=== PATIENT | female | born 1970 | race Caucasian/White ===

== ENCOUNTER 2016-03-25 17:28 | Emergency (ER) | payer MEDICAID ==
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
== END 2016-03-25 19:08 | disposition home or self-care (01) ==
LOC: ER 17:28
DX: M76.62 Achilles tendinitis, left leg (principal); M25.572 Pain in left ankle and joints of left foot
CPT/HCPCS: 99283

== ENCOUNTER 2016-06-13 16:28 | Emergency (ER) | payer MEDICAID ==
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
[2016-06-13] MEDS ORDERED: IBUPROFEN 600 MG TABLET PO ONE (17:26)
== END 2016-06-13 19:04 | disposition home or self-care (01) ==
LOC: ER 16:28
DX: S60.222A Contusion of left hand, initial encounter (principal); M25.532 Pain in left wrist; Y04.2XXA Assault by strike against or bumped into by another person, initial encounter; Y92.009 Unspecified place in unspecified non-institutional (private) residence as the place of occurrence of the external cause
CPT/HCPCS: 99283

== ENCOUNTER 2016-08-01 22:09 | Emergency (ER) | payer MEDICAID ==
[2016-08-01 23:07] LABS: URINE APPEARANCE CLEAR; URINE BILIRUBIN NEGATIVE (NEGATIVE); URINE BLOOD TRACE-I (NEGATIVE); URINE COLOR YELLOW; URINE GLUCOSE (UA) NEGATIVE (NEGATIVE); URINE KETONE NEGATIVE (NEGATIVE); URINE LEUKOCYTE ESTERASE NEGATIVE (NEGATIVE); URINE NITRITE NEGATIVE (NEGATIVE); URINE PROTEIN NEGATIVE (NEGATIVE); URINE UROBILINOGEN 0.2 E.U./dL (0.20 - 1.00)
[2016-08-01 23:08] LABS: BASO % 0.2 % (0-6); EOS % 0.7 % (0-6); GRAN % 57.2 % (47-80); HEMOGLOBIN 13.1 gm/dl (11.6-16.0); LYMPH % 35.8 % (16-45); MEAN CORPUSCULAR HEMOGLOBIN 32.6 pg (27-33); MEAN CORPUSCULAR HGB CONC 33.6 g/dl (32-36); MEAN PLATELET VOLUME 10.2 fl (7.4-10.4); MONO % 6.1 % (0-9); PLATELET COUNT 337 K/uL (130-400); RED BLOOD COUNT 4.02 M/uL (3.80-5.40); WHITE BLOOD COUNT W/O DIFF 11.6 K/uL (4.2-12.2)
[2016-08-01 23:09] LABS: URINE BACTERIA NONE SEEN; URINE EPITHELIAL CELLS 0 - 2 (FEW); URINE RBC 0 - 2 (NONE SEEN); URINE WBC 0 - 2 (0-2/hpf)
[2016-08-01 23:18] LABS: ANION GAP 6.2 (7-16); BLOOD UREA NITROGEN 14 mg/dL (7-17); CARBON DIOXIDE 24.8 mmol/L (22-30); CREATININE 0.7 mg/dL (0.52-1.04); EST GLOMERULAR FILTRATION RATE > 60 ml/min; GLUCOSE,RANDOM 94 mg/dL (70-110)
[2016-08-01] MEDS ORDERED: MORPHINE SULFATE 5 MG/ML PFS IVP ONE (23:51)
--- NOTE | 2016-08-01 23:52 | Emergency Department Record ---
History of Present Illness - General Chief complaint: Weakness Stated complaint: R SIDE OF FACE NUMB Time Seen by Provider: 08/01/16 22:34 Source: Patient Mode of Arrival: Wheelchair Limitations: No limitations - History of Present Illness Initial comments: pt has had a r sided headache since 8am that started suddenly and continued to worsen throught the day thend about 3 hours ago she noticed a heaviness to her r arm and leg and numbness to her right face and felt like something was crawling in her r ear. Complaint: Focal weakness Onset/Timin -: Hour(s) Location: Face, RUE, R hand Severity: Moderate Quality: Other Consistency: Constant Improves with: None Worsens with: None Associated Symptoms: Headaches, Nausea/vomiting - [place] Coma Scale Eye Response: (4) Open spontaneously Motor Response: (6) Obeys commands Verbal Response: (5) Oriented [place] Total: 15 - Symptoms of Stroke Onset of Symptoms Date: 08/01/16 Onset of Symptoms Time: 20:00 Symptom Onset Unknown: No (headache started at 0800) Symptoms of stroke: Muscle Weakness, Weakness of Face Muscles Baseline State End Date: 08/01/16 - Related Data Home Medications Medication Instructions Recorded Confirmed Last Taken Chrm/Vineg/Bit-Orang Peel/Gr T 1 each PO DAILY 07/14/14 06/13/16 06/13/16 [Apple Cider Vinegar Plus Tb] Allergies Allergy/AdvReac Type Severity Reaction Status Date / Time adhesive tape Allergy Intermediate RASH Verified 08/01/16 22:13 Latex, Natural Rubber Allergy Intermediate SWELLING Verified 08/01/16 22:13 (GENERAL) Penicillins Allergy Intermediate SWELLING Verified 08/01/16 22:13 (GENERAL) Travel Screening - Travel/Exposure Within Last 30 Days Have you traveled within the last 30 days?: No - Travel/Exposure Within Last Year Have you traveled outside the [place] in the last year?: No - Additonal Travel Details Have you been exposed to anyone with a communicable illness?: No - Travel Symptoms Symptom Screening: None Review of Systems Reviewed: No additional complaints except as noted below Constitutional: Reports: As per HPI. Denies: Chills, Fever, Malaise, Night sweats, Weakness, Weight change Eyes: Reports: As per HPI. Denies: Eye discharge, Eye pain, Photophobia, Vision change ENT: Reports: As per HPI. Denies: Congestion, Dental pain, Ear pain, Epistaxis , Hearing loss, Throat pain Respiratory: Reports: As per HPI. Denies: Cough, Dyspnea, Hemoptysis, Stridor, Wheezes Cardiovascular: Reports: As per HPI. Denies: Arrhythmia, Chest pain, Dyspnea on exertion, Edema, Murmurs, Orthopnea, Palpitations, Paroxysmal nocturnal dyspnea, Rheumatic Fever, Syncope Endocrine: Reports: As per HPI. Denies: Fatigue, Heat or cold intolerance, Polydipsia, Polyuria Gastrointestinal: Reports: As per HPI. Denies: Abdominal pain, Constipation, Diarrhea, Hematemesis, Hematochezia, Melena, Nausea, Vomiting Genitourinary: Reports: As per HPI. Denies: Abnormal menses, Discharge, Dyspareunia, Dysuria, Frequency, Hematuria, Incontinence, Retention, Urgency Musculoskeletal: Reports: As per HPI. Denies: Arthralgia, Back pain, Gout, Joint swelling, Myalgia, Neck pain Skin: Reports: As per HPI. Denies: Bruising, Change in color, Change in hair/ nails, Lesions, Pruritus, Rash Neurological: Reports: As per HPI. Denies: Abnormal gait, Confusion, Headache, Numbness, Paresthesias, Seizure, Tingling, Tremors, Vertigo, Weakness Psychiatric: Reports: As per HPI. Denies: Anxiety, Auditory hallucinations, Depression, Homicidal thoughts, Suicidal thoughts, Visual hallucinations Hematological/Lymphatic: Reports: As per HPI. Denies: Anemia, Blood Clots, Easy bleeding, Easy bruising, Swollen glands Past Medical History - SOCIAL HISTORY Smoking Status: Current every day smoker Alcohol Use: None Drug Use: None - RESPIRATORY Hx Respiratory Disorders: Yes Hx Asthma: Yes Hx Bronchitis: Yes Hx Pneumonia: Yes Hx Sleep Apnea: Yes Hx of CPAP: Yes - CARDIOVASCULAR Hx Cardio Disorders: Yes Hx Hypotension: Yes (100 sbp) Hx Palpitations: Yes (last episode- august- sees principal mechanical engineer yearly) Comment:: high cholesterol - NEURO Hx Neuro Disorders: Yes Hx Seizures: Yes (last seizure 2013) - GI Hx GI Disorders: Yes Hx Abdominal Pain: Yes Hx Irritable Bowel: Yes Hx Nausea/Vomiting: Yes Hx of Polyps: Yes - Hx Genitourinary Disorders: Yes Hx UTI: Yes ( CHILD) Comment:: hyst - ENDOCRINE Hx Endocrine Disorders: No - MUSCULOSKELETAL Hx Musculoskeletal Disorders: No - PSYCH Hx Psych Problems: Yes Hx Anxiety: Yes Hx Depression: Yes Comment:: bi polar - HEMATOLOGY/ONCOLOGY Hx Hematology/Oncology Disorders: No Family Medical History Any Significant Family History?: No *Cancer Comment: hodgkins lymphoma, pancreatic Physical Exam - General General Appearance: Alert, Oriented x3, Cooperative, Mild distress - Head Head exam: Normal inspection - Eye Eye exam: Normal appearance, PERRL, EOMI Pupils: Normal accommodation - ENT ENT exam: Normal exam, Mucous membranes moist, Normal external ear exam, Normal orophraynx, TM's normal bilaterally Ear exam: Normal external inspection. negative: External canal tenderness Nasal Exam: Normal inspection. negative: Discharge, Sinus tenderness Mouth exam: Normal external inspection, Tongue normal Teeth exam: Normal inspection. negative: Dental caries Throat exam: Normal inspection. negative: Tonsillar erythema, Tonsillar exudate - Neck Neck exam: Normal inspection, Full ROM. negative: Tenderness - Respiratory Respiratory exam: Normal lung sounds bilaterally. negative: Respiratory distress - Cardiovascular Cardiovascular Exam: Regular rate, Normal rhythm, Normal heart sounds - GI/Abdominal GI/Abdominal exam: Soft, Normal bowel sounds. negative: Tenderness - Rectal Rectal exam: Deferred - exam: Deferred - Extremities Extremities exam: Normal inspection, Full ROM, Normal capillary refill. negative: Tenderness - Back Back exam: Reports: Normal inspection, Full ROM. Denies: Muscle spasm, Rash noted, Tenderness - Neurological Neurological exam: Alert, CN II-XII intact, Normal gait, Oriented X3, Other (4/ 5 strength of lower extremity) - Psychiatric Psychiatric exam: Normal affect, Normal mood - Skin Skin exam: Dry, Intact, Normal color, Warm Stroke Assessment - NIH Stroke Scale 1a. Level of Consciousness: (0) Alert 1b. LOC Questions: (0) Answers Correctly 1c. LOC Commands: (0) Performs Tasks Correctly 2. Best Gaze: (0) Normal 3. Visual: (0) No Visual Loss 4. Facial Palsy: (0) Normal Symmetrical Movement 5a. Motor Arm Left: (0) No Drift 5b. Motor Arm Right: (0) No Drift 6a. Motor Leg Left: (0) No Drift 6b. Motor Leg Right: (1) Drift 7. Limb Ataxia: (0) Absent 8. Sensory: (0) Normal 9. Best Language: (0) No Aphasia 10. Dysarthria: (0) Normal 11. Extinction/Inattention: (0) No Abnormality NIH Stoke Scale Total: 1 Course Vital Signs 08/01/16 08/01/16 08/01/16 22:12 23:04 23:30 Temperature 98.1 F 98.0 F Pulse Rate 76 Pulse Rate [ 74 71 Pulse Ox Probe] Respiratory 22 20 20 Rate Blood Pressure 122/65 Blood Pressure 107/67 102/65 [Left Arm] Pulse Ox 93 L 94 L 94 L - Reevaluation(s) Reevaluation #1: 08/01/16 23:58 pt has regained feeling and strength in her r arm Medical Decision Making - Management Options MDM Management: Additional Work-up Planned (e.g. ADM/Transfer/OP Study) - Data Complexity MDM Data: Labs Ordered and/or Reviewed, X-Ray Ordered and/or Reviewed, EKG Ordered and/or Reviewed - Lab Data Result diagrams: 08/01/16 22:15 08/01/16 22:15 Lab Results 08/01/16 08/01/16 08/01/16 Range/Units 22:15 22:15 22:15 WBC 11.6 (4.2-12.2) K/uL RBC 4.02 (3.80-5.40) M/uL Hgb 13.1 (11.6-16.0) gm/dl Hct 39.0 (35.0-47.0) % MCV 97.0 (81-97) fl MCH 32.6 (27-33) pg MCHC 33.6 (32-36) g/dl RDW 13.0 (11.5-14.5) % Plt Count 337 (130-400) K/uL MPV 10.2 (7.4-10.4) fl Gran % 57.2 (47-80) % Lymphocytes % 35.8 (16-45) % Monocytes % 6.1 (0-9) % Eosinophils % 0.7 (0-6) % Basophils % 0.2 (0-6) % Sodium 141 (136-145) mmol/L Potassium 3.7 (3.5-5.1) mmol/L Chloride 110 H (98-107) mmol/L Carbon Dioxide 24.8 (22-30) mmol/L Anion Gap 6.2 L (7-16) BUN 14 (7-17) mg/dL Creatinine 0.7 (0.52-1.04) mg/dL Estimated GFR > 60 ml/min Random Glucose 94 (70-110) mg/dL Calcium 9.3 (8.5-10.1) mg/dL Urine Color Yellow Urine Appearance Clear Urine pH 7.5 (5.0-8.0) Ur Specific [place] 1.015 (1.002-1.030) Urine Protein Negative (NEGATIVE) Urine Glucose (UA) Negative (NEGATIVE) Urine Ketones Negative (NEGATIVE) Urine Blood Trace-i (NEGATIVE) Urine Nitrite Negative (NEGATIVE) Urine Bilirubin Negative (NEGATIVE) Urine Urobilinogen 0.2 (0.20 - 1.00) E.U./dL Ur Leukocyte Esterase Negative (NEGATIVE) Urine RBC 0 - 2 (NONE SEEN) Urine WBC 0 - 2 (0-2/hpf) Ur Epithelial Cells 0 - 2 (FEW) Urine Bacteria None seen - EKG Data -: EKG Interpreted by Me EKG: No Acute Changes - Radiology Data Radiology results: Report reviewed, Image reviewed Disposition Disposition: Transfer Clinical Impression: Complicated migraine Disposition: Acute Care Hospital Transfer Transfer To: [facility] Reason For Transfer: stroke team Accepting Physician: dr rodríguez Time Discussed w/Accepting Physician: 00:15 Forms: Patient Portal Access
--- NOTE | 2016-08-02 08:52 | CT SCAN REPORT ---
EXAM: CT SCAN HEAD WO CONTRAST HISTORY: RIGHT-SIDED HEADACHE BEGINNING SIXTEEN HOURS AGO. RIGHT FACIAL NUMBNESS BEGINNING FOUR HOURS AGO. TECHNIQUE: Routine noncontrast CT examination of the head is performed. COMPARISON: None. FINDINGS: The ventricles and subarachnoid spaces are normal in size. No area of abnormally increased or attenuation is noted throughout the brain substance. No abnormal extraaxial fluid collection is seen. No acute skull abnormality is identified. The visualized paranasal sinuses and mastoid air cells are clear. The orbits, as visualized, are unremarkable. IMPRESSION: NO INTRACRANIAL ABNORMALITY IDENTIFIED. JOB NUMBER: [id number] MTDD
== END 2016-08-02 00:28 | disposition short-term general hospital (02) ==
LOC: ER 22:09
DX: G43.109 Migraine with aura, not intractable, without status migrainosus (principal); R20.0 Anesthesia of skin; R11.2 Nausea with vomiting, unspecified; M62.81 Muscle weakness (generalized); I95.9 Hypotension, unspecified; F17.210 Nicotine dependence, cigarettes, uncomplicated
CPT/HCPCS: 99285 ×2; 96374; 85025; 80048; 81001; 70450; 93005; 93010; J2270

== ENCOUNTER 2016-10-27 14:52 | Emergency (ER) | payer MEDICAID ==
[2016-10-27] MEDS ORDERED: 0.9 % SODIUM CHLORIDE 1,000 ML BAG IV ONE (15:04)
--- NOTE | 2016-10-27 15:11 | Emergency Department Record ---
History of Present Illness - General Chief Complaint: Abdominal Pain Stated Complaint: CHILLS AND PAIN/LUMP IN ABD Time Seen by Provider: 10/27/16 14:54 Source: Patient, Family Mode of Arrival: Ambulatory Limitations: No limitations - History of Present Illness Initial Comments: 45 yo female presents with a concern about abdominal pain. She felt a tender, bulging area Monday over the left upper abdomen. The area involved has enlarged and is more tender today. She has had multiple surgeries in the past including gall bladder, appy, hysterectomy. Most recent surgery was her appendix this summer. She also reports about 2-3 months of bleeding from an area between the rectum and the vagina. It is intermittent. At times it closes but will then re-open. She has not seen her doctor or contact any of the prior surgeons who have operated on her. PCP is Dr Philip. Complaint: Abdominal pain -: Days(s) Location: LUQ Radiation: LUQ Migration to: LUQ Severity: Moderate Quality: Aching Consistency: Constant Improves With: Nothing Worsens With: Nothing Associated Symptoms: Denies other symptoms - Related Data Patient : No Previous Rx's Medication Instructions Recorded Hydrocodone/Acetaminophen [[place] 1 each PO Q8H #12 tablet 10/27/16 5-325 Tablet] Allergies Allergy/AdvReac Type Severity Reaction Status Date / Time adhesive tape Allergy Intermediate RASH Verified 10/27/16 14:57 Latex, Natural Rubber Allergy Intermediate SWELLING Verified 10/27/16 14:57 (GENERAL) Penicillins Allergy Intermediate SWELLING Verified 10/27/16 14:57 (GENERAL) Review of Systems Constitutional: Reports: Chills. Denies: Fever, Malaise, Weakness Eyes: Denies: Eye discharge, Eye pain, Photophobia ENT: Denies: Congestion, Throat pain Respiratory: Denies: Cough, Dyspnea, Wheezes Cardiovascular: Denies: Chest pain, Palpitations, Syncope Endocrine: Denies: Fatigue, Polydipsia, Polyuria Gastrointestinal: Reports: As per HPI, Abdominal pain, Hematochezia. Denies: Constipation, Diarrhea, Vomiting Genitourinary: Denies: Dysuria, Urgency Musculoskeletal: Denies: Arthralgia, Back pain, Myalgia, Neck pain Skin: Denies: Bruising, Change in color Neurological: Denies: Confusion, Headache, Numbness, Weakness Psychiatric: Denies: Anxiety Hematological/Lymphatic: Denies: Blood Clots, Easy bleeding, Easy bruising, Swollen glands Past Medical History - SOCIAL HISTORY Smoking Status: Current every day smoker Drug Use: None - RESPIRATORY Hx Respiratory Disorders: Yes Hx Asthma: Yes Hx Bronchitis: Yes Hx Pneumonia: Yes Hx Sleep Apnea: Yes Hx of CPAP: Yes - CARDIOVASCULAR Hx Cardio Disorders: Yes Hx Hypotension: Yes (100 sbp) Hx Palpitations: Yes (last episode- august- sees [employer] attendant yearly) Comment:: high cholesterol - NEURO Hx Neuro Disorders: Yes Hx Seizures: Yes (last seizure 2013) - GI Hx GI Disorders: Yes Hx Abdominal Pain: Yes Hx Irritable Bowel: Yes Hx Nausea/Vomiting: Yes Hx of Polyps: Yes - Hx Genitourinary Disorders: Yes Hx UTI: Yes ( CHILD) Comment:: hyst - ENDOCRINE Hx Endocrine Disorders: No - MUSCULOSKELETAL Hx Musculoskeletal Disorders: No - PSYCH Hx Psych Problems: Yes Hx Anxiety: Yes Hx Depression: Yes Comment:: bi polar - HEMATOLOGY/ONCOLOGY Hx Hematology/Oncology Disorders: No Family Medical History *Cancer Comment: hodgkins lymphoma, pancreatic Physical Exam - General General Appearance: Alert, Oriented x3, Cooperative, No acute distress Limitations: No limitations - Head Head exam: Atraumatic, Normocephalic, Normal inspection - Eye Eye exam: Normal appearance. negative: Conjunctival injection, Periorbital swelling - ENT ENT exam: Normal exam, Mucous membranes moist Ear exam: Normal external inspection Nasal Exam: Normal inspection Mouth exam: Normal external inspection - Neck Neck exam: Normal inspection, Full ROM. negative: Tenderness - Respiratory Respiratory exam: Normal lung sounds bilaterally. negative: Respiratory distress - Cardiovascular Cardiovascular Exam: Regular rate, Normal rhythm, Normal heart sounds - GI/Abdominal GI/Abdominal exam: Soft, Tenderness (mild LUQ tenderness, significant obesity limits abilitiy to clearly identify a hernia or mass, no redness, soft abdomen, no rebound or guarding). negative: Distended, Guarding, Rebound, Rigid - Rectal Rectal exam: Heme (-) stool. negative: Black stool, Decreased rectal tone, Fecal impaction, Heme (+) stool, Hemorrhoids, Mass, Normal inspection ( approximately 2cm posterior to the anus there is a 2-3 mm opening, no blood or drainage, no swelling, no erythema), Tenderness - exam: Cervical discharge (white). negative: Abnormal external exam, Adnexal mass (L), Adnexal mass (R), Adnexal tenderness (L), Adnexal tenderness (R), Vaginal bleeding, Vaginal erythema - Extremities Extremities exam: Normal inspection, Full ROM. negative: Pedal edema, Tenderness - Back Back exam: Reports: Normal inspection, Full ROM. Denies: Muscle spasm, Rash noted, Tenderness - Neurological Neurological exam: Alert, Normal gait, Oriented X3 - Psychiatric Psychiatric exam: Normal affect, Normal mood - Skin Skin exam: Dry, Intact, Normal color, Warm Course - Reevaluation(s) Reevaluation #1: The EMR and HC were reviewed In October of 2014 the patient had NENO with Dr Yung. In August of 2016 the patient was seen in the [facility] ED. She was diagnosed with appendicitis and had lap appy with Dr Iglesias. It was noted that the rectal bleeding was ongoing at that time indicating a fairly chronic issue. She has an up coming GI appointment. The patient states she has had many surgeries since 2000 2002 [facility] - Attempted hysterectomy 2002 [facility] - Completed hysterectomy 2002 [facility] - Hernia 2004 [facility] - Bladder suspension 2014 [facility] - NENO Yung 2016 Lucinda Iglesias 10/27/16 15:25 No acute changes on the CBC or UA She is heme negative on rectal examination She does have a 2-3 mm linear opening 2cm posterior to the anus, no current pus or drainage, no blood or bleeding. This does raise the concern for fistula or chronic soft tissue infection. CT is ordered. 10/27/16 15:44 No acute changes on the CMP The lipase is minimally elevated at 98 10/27/16 16:11 Reevaluation #2: The CT of the abdomen and pelvis was reviewed. NO acute process The patient will be referred to Dr Yung again given the chronic posterior wound behind the anus 10/27/16 18:14 Medical Decision Making - Lab Data Result diagrams: 10/27/16 15:21 10/27/16 15:21 Disposition Disposition: Discharge Clinical Impression: Abdominal pain Qualifiers: Abdominal location: unspecified location Qualified Code(s): R10.9 - Unspecified abdominal pain Disposition: Home, Self-Care Condition: (1) Good Instructions: Abdominal Pain (ED) Additional Instructions: You are being referred to Dr Yung of surgery for the long standing wound/sore near your anus Return if you have fever, pain, pus or any new concerns Prescriptions: Hydrocodone/Acetaminophen [Dr[place] 5-325 Tablet] 1 each PO Q8H #12 tablet Referrals: Cas Yung [DOCTOR OF OSTEOPATH] - [facility] [Provider Group] Forms: Patient Portal Access Time of Disposition: 18:18 Quality - Quality Measures Quality Measures: N/A - Blood Pressure Screening Does Patient Have Any of the Following: No Blood Pressure Classification: Normal BP Reading Systolic Measurement: 108 Diastolic Measurement: 75 Screening for High Blood Pressure: < Normal BP, F/U Not Required > [G8783]
[2016-10-27 15:26] LABS: HEMATOCRIT 39.5 % (35.0-47.0); HEMOGLOBIN 13.3 gm/dl (11.6-16.0); MEAN CELL VOLUME 95.2 fl (81-97); MEAN CORPUSCULAR HGB CONC 33.7 g/dl (32-36); MEAN PLATELET VOLUME 9.5 fl (7.4-10.4); PLATELET COUNT 360 K/uL (130-400); RED BLOOD COUNT 4.15 M/uL (3.80-5.40); RED CELL DISTRIBUTION WIDTH 13.2 % (11.5-14.5); URINE APPEARANCE CLEAR; URINE BILIRUBIN NEGATIVE (NEGATIVE); URINE BLOOD TRACE-I (NEGATIVE); URINE COLOR YELLOW; URINE GLUCOSE (UA) NEGATIVE (NEGATIVE); URINE KETONE NEGATIVE (NEGATIVE); URINE LEUKOCYTE ESTERASE NEGATIVE (NEGATIVE); URINE NITRITE NEGATIVE (NEGATIVE); URINE PROTEIN NEGATIVE (NEGATIVE); URINE UROBILINOGEN 0.2 E.U./dL (0.20 - 1.00)
[2016-10-27 15:35] LABS: URINE MUCUS MODERATE; URINE RBC 0 - 2 (NONE SEEN); URINE WBC NONE SEEN (0-2/hpf)
[2016-10-27 15:38] LABS: PLATELET ESTIMATE NORMAL (NORMAL)
[2016-10-27 15:45] LABS: ALB/GLOB RATIO 1.4 (1.1-1.8); ALBUMIN 4.3 g/dL (4.0-5.0); ALKALINE PHOSPHATASE 100 U/L (35-104); ALT/SGPT 16 U/L (<33); AST/SGOT 13 U/L (10.0-35.0); BLOOD UREA NITROGEN 35.2 mg/dL (12.6-42.6); CREATININE 0.6 mg/dL (0.5-0.9); EST GLOMERULAR FILTRATION RATE > 60 mL/min; GLUCOSE,RANDOM 111 mg/dL (74-109); LIPASE 98 U/L (13-60); TOTAL PROTEIN 7.3 g/dL (6.6-8.7)
[2016-10-27] MEDS ORDERED: MORPHINE SULFATE 5 MG/ML PFS IVP ONE (16:08)
[2016-10-27] MEDS ORDERED: ONDANSETRON HCL IV 4 MG/2 ML VIAL IVP ONE (16:08)
--- NOTE | 2016-10-28 07:53 | CT SCAN REPORT ---
EXAM: EMERGENCY CT SCAN OF THE ABDOMEN AND PELVIS HISTORY: LEFT UPPER QUADRANT BULGE IN ABDOMEN AND SORE VAGINA. PRIOR HYSTERECTOMY, CHOLECYSTECTOMY, HERNIA REPAIR, BLADDER SLING. TECHNIQUE: Axial CT scan of the abdomen and pelvis was performed following both oral and IV contrast administration utilizing a dose of 100 ml of Omnipaque 300 as the IV contrast. Comparison: CT abdomen and pelvis 07/21/15. FINDINGS: Surgical clips are seen in the gallbladder fossa consistent with cholecystectomy. The uterus is not identified consistent with hysterectomy as well. No definite hepatic, splenic, adrenal, pancreatic, or renal mass identified. Oral contrast given has passed throughout the small bowel well into the colon with no small bowel obstruction evident. The appendix is not well demonstrated , but no appendicitis is identified. The lung bases appear essentially clear. No free intraperitoneal air or free intraperitoneal fluid identified. Prominent facet joint arthropathy in the lower lumbar spine. There are probably a couple surgical clips in the subcutaneous tissues of the upper anterior abdominal wall, also present previously. IMPRESSION: 1. POSTOP CHOLECYSTECTOMY AND HYSTERECTOMY. 2. THE APPENDIX IS NOT WELL SEEN, BUT NO APPENDICITIS EVIDENT. 3. DEGENERATIVE CHANGES IN THE FACETS OF THE LOWER LUMBAR SPINE. JOB NUMBER: [id number] [facility]
== END 2016-10-27 18:35 | disposition home or self-care (01) ==
LOC: ER 14:52
DX: R10.12 Left upper quadrant pain (principal)
CPT/HCPCS: 99284 ×2; 96374; 96375; 83690; 80053; 81001; 85027; 74177; Q0111; Q9967; J2405; J2270; 87210; J7030

== ENCOUNTER 2016-11-07 09:22 | Day surgery (SDC) | payer MEDICAID ==
[~2016-11-07 09:22] MED LIST: ACETAMINOPHEN 1,000 MG/100 ML BTL IV ONE; CLINDAMYCIN 600MG/50ML PREMIX 600 MG/50 ML BAG IVPB ONE; FAMOTIDINE 20MG TABLET PO ONE; MECLIZINE 25 MG TABLET PO ONE; METOCLOPRAMIDE 10 MG TABLET PO ONE
[2016-11-07] MEDS ORDERED: HYDROMORPHONE HCL 2 MG/ML VIAL IV ONE (15:51)
[2016-11-07] MEDS ORDERED: SUCCINYLCHOLINE 20 MG/ML 10ML IVP ONE (15:51)
[2016-11-07] MEDS ORDERED: LIDOCAINE 2% MDV (20MG/ML) 20ML VIAL IV ONE (15:51)
[2016-11-07] MEDS ORDERED: ONDANSETRON HCL IV 4 MG/2 ML VIAL IVP ONE (15:51)
[2016-11-07] MEDS ORDERED: SEVOFLURANE 250 ML INH ONE (15:51)
[2016-11-07] MEDS ORDERED: MIDAZOLAM HCL 2MG/2ML VIAL IV ONE (15:51)
[2016-11-07] MEDS ORDERED: KETOROLAC 30 MG/ML VIAL IVP ONE (15:51)
[2016-11-07] MEDS ORDERED: FENTANYL PF 100MCG/2ML VIAL IV ONE (15:51)
[2016-11-07] MEDS ORDERED: PROPOFOL 10 MG/ML VIAL IV ONE (15:51)
[2016-11-07] MEDS ORDERED: ROCURONIUM BROMIDE 50MG/5ML VIAL IV ONE (15:51)
[2016-11-07] MEDS ORDERED: GELATIN SPONGE,ABSORBABLE 1 EACH SPONGE TP ONE (16:23)
[2016-11-07] MEDS ORDERED: BUPIVACAINE 0.25% W/EPI MPF 30ML VIAL IVP ONE (16:23)
[2016-11-07] MEDS ORDERED: DIBUCAINE 30 GM TUBE TOP ONE (16:23)
[2016-11-07] MEDS ORDERED: HYDROCODONE/APAP 5/325MG TABLET PO ONE (16:23)
--- NOTE | 2016-11-09 12:50 | Operative Note ---
DATE OF SURGERY: 11/07/2016 Surgeon: Cas Yung DO PREOPERATIVE DIAGNOSIS: Anal fistula. POSTOPERATIVE DIAGNOSIS: Anal fistula. OPERATION: Anal fistulotomy. Indication: The patient is a 45-year-old female who has had ongoing drainage from what appeared to be a perianal fistula for many, many months. She has tried conservative measures. Local wound care without success. On exam, she had an opening about 2 cm from her anal verge in the posterior position. This appeared to be an external opening of an anal fistula. We did discuss fistulotomy, risks, benefits, and alternatives. Risks include bleeding, infection, issue with incontinence, need for repeat operation, prolonged wound healing. She understood this fully. PROCEDURE: Therefore, after consent was signed and questions answered, the patient was taken to the operating room and placed in a supine position. General anesthesia was administered per the department of anesthesia. The patient was rotated into prone jackknife position. Her buttocks were taped apart. Her perianal region was prepped and draped in the usual fashion. Digital rectal exam was done. No masses were noted. There was a thickening in the posterior midline. At this time, probes were placed in the external opening, and the internal opening was identified confirming the fistula. At this time, this tract was opened. This did not go through the sphincter complex. Once the fistulotomy was done, the edges were marsupialized with 3-0 Vicryl in a running locking fashion. Four-quadrant anal block was done. The Lidocaine ointment was place as well as a Gelfoam pack. She was taken to the recovery room in satisfactory condition. FINDINGS AT THE TIME OF SURGERY: Posterior anal fistula requiring fistulotomy. CC: Dr. Tamera LALA
== END 2016-11-07 12:25 | disposition home or self-care (01) ==
LOC: SUR 09:22
PROVIDERS: ATTEND Surgery
DX: K60.5 Anorectal fistula (principal); G40.909 Epilepsy, unspecified, not intractable, without status epilepticus; E78.00 Pure hypercholesterolemia, unspecified; F17.200 Nicotine dependence, unspecified, uncomplicated; J45.909 Unspecified asthma, uncomplicated
CPT/HCPCS: 93005; 93010; 46270; 00902; J1885; J2405; J3010; J1170; J0330

== ENCOUNTER 2016-11-12 06:20 | Emergency (ER) | payer MEDICAID ==
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
--- NOTE | 2016-11-14 08:12 | RADIOLOGY REPORT ---
EXAM: LEFT KNEE HISTORY: LEFT KNEE PAIN STATUS POST FALL. TECHNIQUE: Four views of the left knee were obtained. Comparison: Previous left tibia and fibula series dated 04/20/16. Encounter: Initial. FINDINGS: The bones and joints are normal in appearance. There is no acute fracture, dislocation, or joint effusion. There are no significant degenerative changes. IMPRESSION: NO ACUTE LEFT KNEE PATHOLOGY. J[facility]BER: [id number] [facility]
== END 2016-11-12 07:35 | disposition home or self-care (01) ==
LOC: ER 06:20
DX: S83.92XA Sprain of unspecified site of left knee, initial encounter (principal); X50.1XXA Overexertion from prolonged static or awkward postures, initial encounter; Y93.K1 Activity, walking an animal
CPT/HCPCS: 99283

== ENCOUNTER 2016-12-03 21:26 | Emergency (ER) | payer MEDICAID ==
[2016-12-03] MEDS ORDERED: METOCLOPRAMIDE HCL 10 MG/2 ML VIAL IVP ONE (21:45)
[2016-12-03] MEDS ORDERED: DIPHENHYDRAMINE HCL IV 50 MG/ML VIAL IVP ONE (21:45)
[2016-12-03] MEDS ORDERED: KETOROLAC 30 MG/ML VIAL IVP ONE (21:45)
[2016-12-03] MEDS ORDERED: 0.9 % SODIUM CHLORIDE 1000ML 1,000 ML IV SCH (21:45)
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
== END 2016-12-03 22:43 | disposition home or self-care (01) ==
LOC: ER 21:26
DX: R51 Headache (principal); R10.12 Left upper quadrant pain; H53.149 Visual discomfort, unspecified
CPT/HCPCS: 99284 ×2; 96374; 96375; 96361; J1885; J1200; J2765; J7030

== ENCOUNTER 2017-01-19 12:53 | Day surgery (SDC) | payer MEDICAID ==
[2017-01-19] MEDS ORDERED: PROPOFOL 10 MG/ML VIAL IV ONE (12:54)
[2017-01-19] MEDS ORDERED: LIDOCAINE 2% MDV (20MG/ML) 20ML VIAL IV ONE (12:54)
[2017-01-19] MEDS ORDERED: MIDAZOLAM HCL 2MG/2ML VIAL IV ONE (12:54)
--- NOTE | 2017-01-20 12:40 | Operative Note ---
DATE OF SURGERY: 01/19/2017 OPERATION: COLONOSCOPY with random biopsy and cold forceps polypectomy. PREOPERATIVE DIAGNOSIS: Diarrhea, left lower quadrant pain, and hematochezia. POSTOPERATIVE DIAGNOSES: 1. Sigmoid colon polyps. 2. Otherwise normal exam, rule out microscopic colitis. PREPARATION QUALITY: Good. ESTIMATED BLOOD LOSS: Minimum. SPECIMENS: Random colon and sigmoid polyps. COMPLICATIONS: None apparent. PROCEDURE: After informed consent was obtained from the patient, she was placed in the left lateral decubitus position in the endoscopy suite, sedated and monitored by the department of anesthesia. Digital rectal exam was unremarkable. A well-lubricated [id number] colonoscope was inserted into the rectum and advanced to the cecum. Preparation quality was good. The cecum and terminal ileum, appendiceal orifice, ileocecal valve, ascending colon, transverse colon, and descending colon were free of inflammatory changes, mass lesions, or polyps. The sigmoid colon revealed 2 diminutive polyps removed with a cold forceps. The remainder of the sigmoid colon and rectum were unremarkable. Random biopsies were obtained to rule out microscopic colitis. J-turn views of the anorectum revealed no mass lesions. The endoscope was straightened, the rectal ampulla deflated, and the endoscope was removed. RECOMMENDATIONS: The patient should follow a high-fiber diet and use a fiber supplement such as Citrucel or Benefiber. She may require repeat colonoscopy in 5-10 years pending tissue results. At this point, I am highly suspicious she suffers from irritable bowel and should continue on Bentyl. This seems to have provided her with relief in the past. As always, thank you for allowing me to participate in the healthcare of your patients. CC: Dr. Maxwell LALA
== END 2017-01-19 14:54 | disposition home or self-care (01) ==
LOC: HOP 12:53
PROVIDERS: ATTEND Internal Medicine Gastroenterology
DX: R19.7 Diarrhea, unspecified (principal); R10.32 Left lower quadrant pain; K92.1 Melena; D12.5 Benign neoplasm of sigmoid colon; E78.00 Pure hypercholesterolemia, unspecified; F32.9 Major depressive disorder, single episode, unspecified; F31.9 Bipolar disorder, unspecified; J45.909 Unspecified asthma, uncomplicated; G43.909 Migraine, unspecified, not intractable, without status migrainosus

== ENCOUNTER 2017-02-10 00:10 | Emergency (ER) | payer MEDICAID ==
[2017-02-10] MEDS ORDERED: MECLIZINE 25 MG TABLET PO ONE (00:28)
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
[2017-02-10 00:48] LABS: BASO % 0.2 % (0-6); EOS % 1.4 % (0-6); GRAN % 51.9 % (47-80); HEMATOCRIT 40.6 % (35.0-47.0); HEMOGLOBIN 13.4 gm/dl (11.6-16.0); MEAN CORPUSCULAR HEMOGLOBIN 31.7 pg (27-33); MEAN PLATELET VOLUME 9.4 fl (7.4-10.4); MONO % 5.5 % (0-9); PLATELET COUNT 358 K/uL (130-400); RED BLOOD COUNT 4.23 M/uL (3.80-5.40); RED CELL DISTRIBUTION WIDTH 13.1 % (11.5-14.5); WHITE BLOOD COUNT W/O DIFF 13.7 K/uL (4.2-12.2)
[2017-02-10 00:58] LABS: INR 0.94; PROTHROMBIN TIME (PATIENT) 10.2 SECONDS (9.5-12.1)
[2017-02-10 01:17] LABS: BLOOD UREA NITROGEN 7 mg/dL (6-20); CREATININE 0.7 mg/dL (0.5-0.9); EST GLOMERULAR FILTRATION RATE > 60 mL/min
[2017-02-10 01:18] LABS: TOTAL PROTEIN 7.2 g/dL (6.6-8.7)
[2017-02-10 01:20] LABS: GLUCOSE,RANDOM 114 mg/dL (74-109)
[2017-02-10 01:22] LABS: ALT/SGPT 20 U/L (<33); AST/SGOT 13 U/L (10.0-35.0)
[2017-02-10 01:23] LABS: ALB/GLOB RATIO 1.4 (1.1-1.8); ALBUMIN 4.2 g/dL (4.0-5.0); ALKALINE PHOSPHATASE 102 U/L (35-104)
[2017-02-10] MEDS ORDERED: ALTEPLASE 100 MG VIAL IV ONE (01:30)
--- NOTE | 2017-02-10 14:49 | CT SCAN REPORT ---
EXAM: EMERGENCY HEAD CT HISTORY: RIGHT SIDED WEAKNESS AND FACIAL NUMBNESS, HEADACHE, DIZZINESS. TECHNIQUE: Axial CT scan of the head was performed without IV contrast. A preliminary report was provided by [facility]. Comparison: Head CT 08/01/16. FINDINGS: No definite acute intracranial hemorrhage identified. No focal mass effect or midline shift apparent. No definite acute infarct or intracranial mass lesion is seen. No depressed calvarial fracture is evident. Yani bullosa formation involving the left middle turbinate. IMPRESSION: 1. NO ACUTE INTRACRANIAL HEMORRHAGE OR FOCAL MASS EFFECT EVIDENT. 2. YANI BULLOSA FORMATION INVOLVING THE LEFT MIDDLE TURBINATE. JOB NUMBER: [id number] MTDD
== END 2017-02-10 02:23 | disposition short-term general hospital (02) ==
LOC: ER 00:10
DX: G81.91 Hemiplegia, unspecified affecting right dominant side (principal); R51 Headache; M62.81 Muscle weakness (generalized); R42 Dizziness and giddiness; R20.2 Paresthesia of skin; R05 Cough; F17.210 Nicotine dependence, cigarettes, uncomplicated
CPT/HCPCS: 70450; 80053; 85025; 85610; 93005; 93010; 96365; 99291; J2997

== ENCOUNTER 2017-02-23 12:44 | Day surgery (SDC) | payer MEDICAID ==
[2017-02-23] MEDS ORDERED: PROPOFOL 10 MG/ML VIAL IV ONE (12:45)
[2017-02-23] MEDS ORDERED: LIDOCAINE 2% MDV (20MG/ML) 20ML VIAL IV ONE ×2 (12:45)
[2017-02-23] MEDS ORDERED: FENTANYL PF 100MCG/2ML VIAL IV ONE ×2 (12:45)
--- NOTE | 2017-02-24 13:20 | Operative Note ---
DATE OF SURGERY: 02/23/2017 OPERATION: ESOPHAGOGASTRODUODENOSCOPY with biopsy. PREOPERATIVE DIAGNOSIS: Left upper quadrant pain. POSTOPERATIVE DIAGNOSIS: Irregular Z line, rule out short-segment Sahu's. PROCEDURE: After informed consent was obtained from the patient, she was placed in the left lateral decubitus position in the endoscopy suite, sedated and monitored by the department of anesthesia. A well-lubricated YQW595 gastroscope was placed in the posterior oropharynx and under direct visualization passed to the proximal esophagus. The endoscope was advanced through the proximal, mid, and distal esophagus. The GE junction was slightly irregular. No ulcers, erosions, strictures, varices, or mass lesions were seen. The remainder of the esophagus, gastric body, antrum, pylorus, normal duodenal bulb and sweep were unremarkable. J-turn views of the proximal stomach were unremarkable. The endoscope was then straightened. The GE junction was biopsied. The endoscope removed from the patient with no new findings noted. RECOMMENDATIONS: Given the patient's improvement, I would recommend she continue her current medical program. We will await the results of biopsy to determine if there is any evidence of Sahu's and what followup may be needed. As always, thank you for allowing me to participate in the healthcare of your patients. CC: MD SPIKE Drake
== END 2017-02-23 14:55 | disposition home or self-care (01) ==
LOC: HOP 12:44
PROVIDERS: ATTEND Internal Medicine Gastroenterology
DX: R10.12 Left upper quadrant pain (principal); K22.70 Barrett's esophagus without dysplasia; K31.89 Other diseases of stomach and duodenum; R56.9 Unspecified convulsions; E78.00 Pure hypercholesterolemia, unspecified; F31.9 Bipolar disorder, unspecified
CPT/HCPCS: 43235; 00731; J3010

== ENCOUNTER 2017-04-10 09:40 | Day surgery (SDC) | payer MEDICAID ==
[~2017-04-10 09:40] MED LIST changes: -FAMOTIDINE 20MG TABLET PO ONE; -MECLIZINE 25 MG TABLET PO ONE; -METOCLOPRAMIDE 10 MG TABLET PO ONE
[2017-04-10] MEDS ORDERED: DIBUCAINE 30 GM TUBE TOP ONE (09:41)
[2017-04-10] MEDS ORDERED: HYDROMORPHONE HCL 2 MG/ML VIAL IV ONE (09:41)
[2017-04-10] MEDS ORDERED: PROPOFOL 10 MG/ML VIAL IV ONE (09:41)
[2017-04-10] MEDS ORDERED: LIDOCAINE 2% MDV (20MG/ML) 20ML VIAL IV ONE (09:41)
[2017-04-10] MEDS ORDERED: GELATIN SPONGE,ABSORBABLE 1 EACH SPONGE TP ONE (09:41)
--- NOTE | 2017-04-11 11:30 | Operative Note ---
DATE OF SURGERY: 04/10/2017 Surgeon: Cas Yung DO PREOPERATIVE DIAGNOSIS: [id number]. POSTOPERATIVE DIAGNOSIS: [id number]. OPERATION: Anal fistulotomy with marsupialization. Indication: The patient is a 46-year-old female who has a prior history of anal fistula. She came in with similar recurrence. We did discuss fistulotomy. Risks, benefits, and alternatives were discussed. Risks include but are not limited to bleeding, infection, acute or chronic pain, fecal incontinence. She understood this fully. PROCEDURE: Thereafter, consent was signed and questions answered. The patient was taken to the operating room and placed in a supine position. General anesthesia was administered per the department of anesthesia. The patient was rotated in lithotomy position. Perianal region was prepped and draped in the usual fashion. She did receive preoperative antibiotic as well as DVT prophylaxis. Perianal block was done with 10 mL of Exparel. A bivalve speculum was placed. The patient had a fistula in the 7-o'clock position. A fistulotomy was done with marsupialization of the edges. This did not go through the sphincter muscle. This was all superficial to that. She tolerated procedure well. CC: Maxwell Bailey MD [facility] HOSPITALMeena
== END 2017-04-10 13:15 | disposition home or self-care (01) ==
LOC: SUR 09:40
PROVIDERS: ATTEND Surgery
DX: K60.3 Anal fistula (principal); J44.9 Chronic obstructive pulmonary disease, unspecified; R56.9 Unspecified convulsions; J45.909 Unspecified asthma, uncomplicated; E78.00 Pure hypercholesterolemia, unspecified; F31.9 Bipolar disorder, unspecified
CPT/HCPCS: 46275; 00902; 36416; 82948; J1170

== ENCOUNTER 2017-04-30 06:29 | Emergency (ER) | payer MEDICAID ==
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
[2017-04-30 07:08] LABS: URINE APPEARANCE CLEAR; URINE BILIRUBIN NEGATIVE (NEGATIVE); URINE BLOOD NEGATIVE (NEGATIVE); URINE COLOR YELLOW; URINE KETONE NEGATIVE (NEGATIVE); URINE LEUKOCYTE ESTERASE TRACE (NEGATIVE); URINE NITRITE POSITIVE (NEGATIVE); URINE UROBILINOGEN >=8.0 E.U./dL (0.20 - 1.00)
[2017-04-30 07:19] LABS: URINE BACTERIA NONE SEEN; URINE RBC NONE SEEN (NONE SEEN); URINE WBC 0 - 2 (0-2/hpf)
== END 2017-04-30 07:46 | disposition home or self-care (01) ==
LOC: ER 06:29
DX: R30.0 Dysuria (principal)
CPT/HCPCS: 81001; 99282

== ENCOUNTER 2017-05-29 15:46 | Emergency (ER) | payer MEDICAID ==
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
[2017-05-29] MEDS ORDERED: ACETAMINOPHEN 1,000 MG/100 ML BTL IVPB ONE (16:42)
[2017-05-29 16:44] LABS: BASO % 0.1 % (0-6); EOS % 0.4 % (0-6); GRAN % 62.2 % (47-80); LYMPH % 29.8 % (16-45); MEAN CELL VOLUME 94.7 fl (81-97); MEAN CORPUSCULAR HEMOGLOBIN 31.6 pg (27-33); MEAN CORPUSCULAR HGB CONC 33.3 g/dl (32-36); MEAN PLATELET VOLUME 9.7 fl (7.4-10.4); MONO % 7.5 % (0-9); PLATELET COUNT 296 K/uL (130-400); RED BLOOD COUNT 4.12 M/uL (3.80-5.40); RED CELL DISTRIBUTION WIDTH 13.4 % (11.5-14.5); WHITE BLOOD COUNT W/O DIFF 7.4 K/uL (4.2-12.2)
[2017-05-29 16:47] LABS: PARTIAL THROMBOPLASTIN TIME 26.8 SECONDS (24.5-39.1); PROTHROMBIN TIME (PATIENT) 10.3 SECONDS (9.5-12.1)
[2017-05-29 16:51] LABS: BLOOD UREA NITROGEN 8 mg/dL (6-20); CREATININE 0.4 mg/dL (0.5-0.9); EST GLOMERULAR FILTRATION RATE > 60 mL/min; TOTAL PROTEIN 6.7 g/dL (6.6-8.7)
[2017-05-29 16:53] LABS: GLUCOSE,RANDOM 94 mg/dL (74-109)
[2017-05-29 16:56] LABS: ALB/GLOB RATIO 1.3 (1.1-1.8); ALBUMIN 3.8 g/dL (4.0-5.0); ALKALINE PHOSPHATASE 119 U/L (35-104); ALT/SGPT 63 U/L (<33); AST/SGOT 53 U/L (10.0-35.0)
[2017-05-29] MEDS ORDERED: DIPHENHYDRAMINE HCL IV 50 MG/ML VIAL IVP ONE (17:04)
[2017-05-29] MEDS ORDERED: METOCLOPRAMIDE HCL 10 MG/2 ML VIAL IVP ONE (17:04)
[2017-05-29] MEDS ORDERED: KETOROLAC 30 MG/ML VIAL IVP ONE (17:04)
[2017-05-29] MEDS ORDERED: POTASSIUM CHL 20MEQ IN 1L NS 20 MEQ/1,000 ML BAG IV ONE (17:07)
--- NOTE | 2017-05-30 08:12 | CT SCAN REPORT ---
EXAM: CT OF THE BRAIN WITHOUT CONTRAST HISTORY: RIGHT SIDED NUMBNESS. TECHNIQUE: CT of the brain without contrast was obtained. Comparison: Prior CT of the brain dated 02/10/17. FINDINGS: The globes are intact. The paranasal sinuses and mastoid air cells are unremarkable. No displaced or depressed skull fracture. No intra or extraaxial hemorrhage. CT is limited for the evaluation of acute infarct. No CT evidence for large or territorial acute infarct. No discreet mass or midline shift. There are some subtle hypodensities within the periventricular and subcortical white matter in the temporal parietal regions bilaterally which appear stable from the prior. Findings are nonspecific. If symptoms persist, consider follow-up dedicated MRI. IMPRESSION: 1. STABLE SUBTLE WHITE MATTER HYPODENSITIES, ABOVE. IF SYMPTOMS PERSIST, CONSIDER FOLLOW-UP WITH MRI. 2. NEGATIVE FOR ACUTE INTRACRANIAL ABNORMALITY. JOB NUMBER: [id number] [facility]
== END 2017-05-29 17:34 | disposition short-term general hospital (02) ==
LOC: ER 15:46
DX: G43.909 Migraine, unspecified, not intractable, without status migrainosus (principal); R29.898 Other symptoms and signs involving the musculoskeletal system; R27.8 Other lack of coordination; R73.03 Prediabetes; I95.9 Hypotension, unspecified; F17.210 Nicotine dependence, cigarettes, uncomplicated
CPT/HCPCS: 99285 ×2; 96374; 96375; 85025; 85730; 85610; 80053; 84484; 70450; 93005; 93010; J1885; J1200; J2765

== ENCOUNTER 2017-08-24 19:57 | Emergency (ER) | payer MEDICAID ==
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
== END 2017-08-24 20:59 | disposition home or self-care (01) ==
LOC: ER 19:57
DX: D22.62 Melanocytic nevi of left upper limb, including shoulder (principal); F17.210 Nicotine dependence, cigarettes, uncomplicated
CPT/HCPCS: 99282

== ENCOUNTER 2017-10-22 19:35 | Emergency (ER) | payer MEDICAID ==
[2017-10-22] MEDS ORDERED: KETOROLAC 30 MG/ML VIAL IM ONE (20:00)
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
[2017-10-22 20:11] LABS: BASO % 0.3 % (0-6); EOS % 0.8 % (0-6); GRAN % 51.6 % (47-80); HEMATOCRIT 39.6 % (35.0-47.0); LYMPH % 40.9 % (16-45); MEAN CELL VOLUME 95.9 fl (81-97); MEAN CORPUSCULAR HEMOGLOBIN 31.5 pg (27-33); MEAN CORPUSCULAR HGB CONC 32.8 g/dl (32-36); MEAN PLATELET VOLUME 9.7 fl (7.4-10.4); MONO % 6.4 % (0-9); PLATELET COUNT 349 K/uL (130-400); RED BLOOD COUNT 4.13 M/uL (3.80-5.40); RED CELL DISTRIBUTION WIDTH 13.7 % (11.5-14.5); WHITE BLOOD COUNT W/O DIFF 12.9 K/uL (4.2-12.2)
[2017-10-22 20:11] LABS: URINE APPEARANCE CLEAR; URINE BILIRUBIN NEGATIVE (NEGATIVE); URINE BLOOD SMALL (NEGATIVE); URINE COLOR YELLOW; URINE GLUCOSE (UA) NEGATIVE (NEGATIVE); URINE KETONE NEGATIVE (NEGATIVE); URINE LEUKOCYTE ESTERASE NEGATIVE (NEGATIVE); URINE NITRITE NEGATIVE (NEGATIVE); URINE PROTEIN NEGATIVE (NEGATIVE); URINE UROBILINOGEN 0.2 E.U./dL (0.20 - 1.00)
[2017-10-22 20:15] LABS: URINE BACTERIA NONE SEEN; URINE EPITHELIAL CELLS 0 - 2 (FEW); URINE WBC 0 - 2 (0-2/hpf)
[2017-10-22 20:23] LABS: BLOOD UREA NITROGEN 13 mg/dL (6-20); CREATININE 0.5 mg/dL (0.5-0.9); EST GLOMERULAR FILTRATION RATE > 60 mL/min
[2017-10-22 20:26] LABS: GLUCOSE,RANDOM 98 mg/dL (74-109)
[2017-10-22] MEDS ORDERED: CYCLOBENZAPRINE 10MG TABLET PO ONE (21:09)
== END 2017-10-22 21:24 | disposition home or self-care (01) ==
LOC: ER 19:35
DX: M54.5 Low back pain (principal); F17.210 Nicotine dependence, cigarettes, uncomplicated; Z87.442 Personal history of urinary calculi
CPT/HCPCS: 99283; 96372; 99284; 85025; 80048; 81001; 74176; J1885

== ENCOUNTER 2017-12-16 15:54 | Emergency (ER) | payer MEDICAID ==
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
[2017-12-16] MEDS: 0.9 % SODIUM CHLORIDE 1,000 ML BAG IV ONE (16:27)
[2017-12-16 16:31] LABS: BASO % 0.3 % (0-6); EOS % 0.2 % (0-6); GRAN % 69.4 % (47-80); HEMOGLOBIN 14.2 gm/dl (11.6-16.0); LYMPH % 23.8 % (16-45); MEAN CELL VOLUME 95.8 fl (81-97); MEAN CORPUSCULAR HEMOGLOBIN 31.6 pg (27-33); MEAN PLATELET VOLUME 9.8 fl (7.4-10.4); MONO % 6.3 % (0-9); PLATELET COUNT 335 K/uL (130-400); RED BLOOD COUNT 4.49 M/uL (3.80-5.40); RED CELL DISTRIBUTION WIDTH 13.4 % (11.5-14.5); WHITE BLOOD COUNT W/O DIFF 14.3 K/uL (4.2-12.2)
[2017-12-16 16:33] LABS: URINE APPEARANCE CLEAR; URINE BILIRUBIN NEGATIVE (NEGATIVE); URINE BLOOD TRACE-I (NEGATIVE); URINE COLOR YELLOW; URINE GLUCOSE (UA) NEGATIVE (NEGATIVE); URINE KETONE NEGATIVE (NEGATIVE); URINE LEUKOCYTE ESTERASE NEGATIVE (NEGATIVE); URINE NITRITE NEGATIVE (NEGATIVE); URINE PROTEIN NEGATIVE (NEGATIVE); URINE UROBILINOGEN 0.2 E.U./dL (0.20 - 1.00)
[2017-12-16 16:38] LABS: BLOOD UREA NITROGEN 9 mg/dL (6-20); CREATININE 0.6 mg/dL (0.5-0.9); EST GLOMERULAR FILTRATION RATE > 60 mL/min
[2017-12-16 16:41] LABS: GLUCOSE,RANDOM 95 mg/dL (74-109)
[2017-12-16 16:43] LABS: AMPHETAMINE SCREEN URINE NOT DETECTED; BARBITURATE SCREEN URINE NOT DETECTED; BENZODIAZEPINE SCREEN URINE NOT DETECTED; COCAINE SCREEN URINE NOT DETECTED; METHADONE SCREEN URINE NOT DETECTED; METHAMPHETAMINE SCREEN NOT DETECTED; OPIATE SCREEN URINE NOT DETECTED; OXYCODONE SCREEN URINE NOT DETECTED; PHENCYCLIDINE SCREEN URINE NOT DETECTED; PROPOXYPHENE SCREEN URINE NOT DETECTED; THC SCREEN URINE NOT DETECTED; TRICYCLIC ANTIDEPRESSANT SCRN NOT DETECTED
[2017-12-16 16:52] LABS: ACETAMINOPHEN < 5.0 ug/mL (10.0-30.0); VALPROIC ACID (DEPAKENE) < 2.8 ug/mL (50.0-100.0)
[2017-12-16 18:30] LABS: URINE BACTERIA FEW; URINE RBC 0 - 2 (NONE SEEN)
== END 2017-12-16 17:50 | disposition home or self-care (01) ==
LOC: ER 15:54
DX: F41.0 Panic disorder [episodic paroxysmal anxiety] (principal); R53.83 Other fatigue; F17.210 Nicotine dependence, cigarettes, uncomplicated
CPT/HCPCS: 99284 ×2; 85025; 80048; 81001; 80305; 80164; G0480 ×2; 80320; 80329; J7030